=== PATIENT | female | born 1990 | race Caucasian/White ===

== ENCOUNTER 2017-01-05 11:13 | Emergency (ER) | payer BC, OTHER ==
[~2017-01-05] VITALS: Ht 175.3 cm; Wt 133.8 kg
[~2017-01-05 11:13] MED LIST: BENZ56AE TP; CODE-54 PO; DCS100C PO; IBP600T1 PO; PREN-93 PO
--- NOTE | 2017-01-05 11:27 | ED Abdominal Pain ---
General Stated Complaint: SHARP ABD PAIN Source of Information: Patient Exam Limitations: No Limitations History of Present Illness Time Seen By Provider: 11:25 Initial Comments To ER with sharp left-sided abdominal pain that began rather suddenly around 8 a.m. this morning and was followed by vomiting and diaphoresis. She has never had this pain before and it radiates to the left flank. She denies any dysuria. She denies any fevers chills or bowel changes. Timing/Duration: 4-6 Hours Severity/Quality: Severe, Sharp Location: LLQ Radiation: Flank Associated Symptoms: No Fever/Chills, Nausea/Vomiting Allergies and Home Medications Allergies Coded Allergies: No Known Drug Allergies (Unverified , 10/11/10) Home Medications Acetaminophen/Codeine 1 Tab Tablet, 1-2 TAB PO Q4H PRN for PAIN, #30 Prescribed by: ESTELA HARDEN on 04/28/13 0916 Benzocaine/Menthol 56 Ml Aerosol, 56 ML TP UD PRN for PAIN, #1 Prescribed by: ESTELA HARDEN on 04/28/13 0916 Docusate Sodium 100 Mg Cap, 100 MG PO BID, #30 Prescribed by: ESTELA HARDEN on 04/28/13 0916 Hydrocodone/Acetaminophen 1 Each Tablet, 1 EACH PO Q4H PRN for PAIN-MODERATE, # 30 Prescribed by: PABLO ROCHA on 01/05/17 1213 Ibuprofen 600 Mg Tab, 600 MG PO Q6H, #40 Prescribed by: ESTELA HARDEN on 04/28/13 0916 Ondansetron 8 Mg Tab.rapdis, 8 MG PO Q4H PRN for NAUSEA/VOMITING-1ST LINE, #14 Prescribed by: PABLO ROCHA on 01/05/17 1213 Vit/Fe Fumarate/Fa 1 Each Tablet, 1 EACH PO DAILY, (Reported) Sulfamethoxazole/Trimethoprim 1 Each Tablet, 1 EACH PO BID, #10 Prescribed by: PABLO ROCHA on 01/05/17 1213 Tamsulosin HCl 0.4 Mg Cap, 0.4 MG PO DAILY, #10 Prescribed by: PABLO ROCHA on 01/05/17 1213 Review of Systems Constitutional: see HPI EENTM: No Symptoms Reported Respiratory: No Symptoms Reported Cardiovascular: No Symptoms Reported Gastrointestinal: See HPI Genitourinary: No Symptoms Reported Musculoskeletal: no symptoms reported Skin: no symptoms reported Psychiatric/Neurological: No Symptoms Reported Endocrine: No Symptoms Reported Hematologic/Lymphatic: No Symptoms Reported Past Sqtfvza-Cttbcy-Pckwks Hx Patient Social History Recent Foreign Travel: No Contact w/Someone Who Travel: No Immunizations Up To Date Tetanus Booster (TDap): Less than 5yrs PED Vaccines UTD: Yes Surgeries HX Surgeries: Yes Respiratory Hx Respiratory Disorders: No Cardiovascular Hx Cardiac Disorders: No Neurological Hx Neurological Disorders: No Reproductive System Hx Reproductive Disorders: No Genitourinary Hx Genitourinary Disorders: No Gastrointestinal Hx Gastrointestinal Disorders: No Musculoskeletal Hx Musculoskeletal Disorders: No Endocrine Hx Endocrine Disorders: No HEENT HX ENT Disorders: No Cancer Hx Cancer: No Psychosocial Hx Psychiatric Problems: No Integumentary HX Skin/Integumentary Disorder: No Blood Transfusions Hx Blood Disorders: No Family Medical History Family Medial History: Family history: Cardiovascular disease Family history: Diabetes mellitus No Family History of: Abdominal aortic aneurysm Sloan's disease Alcoholism Aphasia Cancer Cancer of colon Cataract Chest pain Congenital heart disease Congestive heart failure Cystic fibrosis Dementia Dysphagia Family history: Allergy Family history: Alzheimer's disease Family history: Arthritis Family history: Asthma Family history: Breast disease Family history: Coronary thrombosis Family history: Gastrointestinal disease Family history: Glaucoma Family history: Hypertension Family history: Osteoporosis Family history: Thyroid disorder Headache Hearing loss Heart disease Hereditary disease History of - anemia History of - disorder History of - respiratory disease History of drug abuse Human immunodeficiency virus (HIV) seropositivity Hypercholesterolemia Infertile Kidney disease Malignant neoplasm of lung Myocardial infarction Parkinson's disease Prostate cancer Psychotic disorder Seizure disorder Stroke Tuberculosis Visual impairment Physical Exam Vital Signs VS - Last 72 Hours, by Label 01/05/17 01/05/17 11:33 11:34 Temp 95.9 95.9 Pulse 70 B/P (MAP) 148/103 Pulse Ox 98 Capillary Refill : General Appearance: WD/WN, no apparent distress HEENT: PERRL/EOMI, normal ENT inspection Neck: non-tender, full range of motion Respiratory: no respiratory distress, no accessory muscle use Cardiovascular: regular rate, rhythm, no murmur Gastrointestinal: normal bowel sounds, soft, tenderness (LLQ) Extremities: normal range of motion, non-tender Neurologic/Psychiatric: alert, normal mood/affect, oriented x 3 Skin: normal color, warm/dry Progress/Results/Core Measures Results/Orders Lab Results Laboratory Tests Test 01/05/17 11:20 01/05/17 11:30 Range/Units White Blood Count 11.5 H 4.3-11.0 10^3/uL Red Blood Count 5.28 4.35-5.85 10^6/uL Hemoglobin 15.2 11.5-16.0 G/DL Hematocrit 44 35-52 % Mean Corpuscular Volume 83 80-99 FL Mean Corpuscular Hemoglobin 29 25-34 PG Mean Corpuscular Hemoglobin Concent 35 32-36 G/DL Red Cell Distribution Width 12.5 10.0-14.5 % Platelet Count 288 130-400 10^3/uL Mean Platelet Volume 10.3 7.4-10.4 FL Neutrophils (%) (Auto) 82 H 42-75 % Lymphocytes (%) (Auto) 13 12-44 % Monocytes (%) (Auto) 4 0-12 % Eosinophils (%) (Auto) 1 0-10 % Basophils (%) (Auto) 0 0-10 % Neutrophils # (Auto) 9.4 H 1.8-7.8 X 10^3 Lymphocytes # (Auto) 1.5 1.0-4.0 X 10^3 Monocytes # (Auto) 0.5 0.0-1.0 X 10^3 Eosinophils # (Auto) 0.1 0.0-0.3 10^3/uL Basophils # (Auto) 0.0 0.0-0.1 10^3/uL Sodium Level 138 135-145 MMOL/L Potassium Level 3.9 3.6-5.0 MMOL/L Chloride Level 109 H 98-107 MMOL/L Carbon Dioxide Level 16 L 21-32 MMOL/L Anion Gap 13 5-14 MMOL/L Blood Urea Nitrogen 13 7-18 MG/DL Creatinine 0.80 0.60-1.30 MG/DL Estimat Glomerular Filtration Rate > 60 BUN/Creatinine Ratio 16 Glucose Level 126 H 70-105 MG/DL Calcium Level 9.6 8.5-10.1 MG/DL Total Bilirubin 0.6 0.1-1.0 MG/DL Aspartate Amino Transf (AST/SGOT) 30 5-34 U/L Alanine Aminotransferase (ALT/SGPT) 48 0-55 U/L Alkaline Phosphatase 69 40-136 U/L Total Protein 7.5 6.4-8.2 GM/DL Albumin 4.3 3.2-4.5 GM/DL Serum Test, Qualitative NEGATIVE NEGATIVE Urine Color YELLOW Urine Clarity SLIGHTLY CLOUDY Urine pH 5 5-9 Urine Specific [place] 1.025 H 1.016-1.022 Urine Protein 1+ H NEGATIVE Urine Glucose (UA) NEGATIVE NEGATIVE Urine Ketones 4+ H NEGATIVE Urine Nitrite NEGATIVE NEGATIVE Urine Bilirubin NEGATIVE NEGATIVE Urine Urobilinogen NORMAL NORMAL MG/DL Urine Leukocyte Esterase 3+ H NEGATIVE Urine RBC (Auto) 3+ H NEGATIVE Urine RBC 10-25 H /HPF Urine WBC 10-25 H /HPF Urine Squamous Epithelial Cells 25-50 H /HPF Urine Crystals NONE /LPF Urine Bacteria MODERATE H /HPF Urine Casts NONE /LPF Urine Mucus NEGATIVE /LPF Urine Culture Indicated YES My Orders Orders - PABLO ROCHA APRN Ketorolac Injection (Toradol Injection) (01/05/17 11:30) Ns Iv 1000 Ml (Sodium Chloride 0.9%) (01/05/17 11:30) Cbc With Automated Diff (01/05/17 11:24) Comprehensive Metabolic Panel (01/05/17 11:24) Ua Culture If Indicated (01/05/17 11:24) Saline Lock/Iv-Start (01/05/17 11:24) Urine Bedside (01/05/17 11:24) Ct Abd/Pelvis Wo(Kidney Stone) (01/05/17 11:27) Hcg,Qualitative Serum (01/05/17 11:39) Urine Culture (01/05/17 11:30) Levofloxacin Tablet (Levaquin Tablet) (01/05/17 12:15) Hydrocodone/Apap 5/325 Tablet (Lortab 5 (01/05/17 12:15) Abdomen/Kub 1view (01/05/17 12:14) Medications Given in ED Current Medications Medications Dose Ordered Sig/Brain Route Start Time Stop Time Status Last Admin Dose Admin Ketorolac Tromethamine 30 mg ONCE ONCE IVP 01/05/17 11:30 01/05/17 11:31 DC 01/05/17 11:33 30 MG Vital Signs/I&O Vital Sign - Last 12Hours 01/05/17 01/05/17 11:33 11:34 Temp 95.9 95.9 Pulse 70 B/P (MAP) 148/103 Pulse Ox 98 Diagnostic Imaging Diagonstic Imaging: CT Comments NAME: [facility]LADE [facility] REC#: [id number] PT STATUS: REG ER : 1990 PHYSICIAN: PABLO ROCHA APRN ADMIT DATE: 01/05/17/ER Draft Date of Exam:01/05/17 CT ABD/PELVIS WO(KIDNEY STONE) PROCEDURE: CT urinary tract, rule out kidney stone. TECHNIQUE: Multiple contiguous axial images were obtained through the abdomen and pelvis without the use of intravenous contrast. INDICATION: Left flank pain. FINDINGS: There is a mild to moderate left hydroureteronephrosis secondary to a 4 mm stone in the distal left ureter about 1 cm from the UVJ. No other urinary tract stones seen. No right-sided hydronephrosis. The abdominal aorta is normal in caliber. No significantly enlarged paraaortic lymph nodes. The liver, the gallbladder, the spleen, the pancreas and the adrenals appear unremarkable for unenhanced exam. The urinary bladder is empty and not well seen. The uterus and the adnexa appear grossly unremarkable. There is no bowel obstruction. There is a tiny fat-containing umbilical hernia. There is no significant free fluid or fluid collection in the abdomen or pelvis. The lung bases appear clear. The osseous structures demonstrate degenerative changes in the SI joints. IMPRESSION: 1. There is [id number] left hydroureteronephrosis secondary to distal ureteric stone about 1 cm from the UVJ. 2. Tiny fat-containing umbilical hernia. Dictated on workstation # [id number] Dict: 01/05/17 1227 Trans: 01/05/17 1239 [facility] [id number] Interpreted by: ROMÁN BRAXTON MD Electronically signed by: Departure Impression Impression: Primary Impression: Left ureteral stone Disposition: 01 HOME, SELF-CARE Condition: Stable Departure-Patient Inst. Decision time for Depature: 12:10 Referrals: NO,LOCAL PHYSICIAN (PCP) Primary Care Physician MATHEW DIXON MD Patient Instructions: Kidney Stones (DC) Add. Discharge Instructions: Strain all of your urine. U should be able to see this kidney stone when you pass it 2. Use uswk-nrd-fhhrezo Motrin (ibuprofen) 800 mg every 8 hours in addition to the prescribed pain medication. 3. Call Dr. Dixon today or tomorrow to make an appointment to be seen Scripts Sulfamethoxazole/Trimethoprim (Bactrim Ds Tablet) 1 Each Tablet 1 EACH PO BID, #10 TAB Prov: PABLO ROCHA APRN 01/05/17 Ondansetron (Zofran Odt) 8 Mg Tab.rapdis 8 MG PO Q4H Y for NAUSEA/VOMITING-1ST LINE, #14 TAB Prov: PABLO ROCHA APRN 01/05/17 Hydrocodone/Acetaminophen ([place] 5-325 Tablet) 1 Each Tablet 1 EACH PO Q4H Y for PAIN-MODERATE, #30 TAB Prov: PABLO ROCHA APRN 01/05/17 Tamsulosin HCl (Flomax) 0.4 Mg Cap 0.4 MG PO DAILY, #10 CAP Prov: PABLO ROCHA APRN 01/05/17 PABLO ROCHA APRN Jan 05, 2017 11:27
[2017-01-05] MEDS ORDERED: NS IV 1000 ML 1,000 ML IV SCH (11:30)
[2017-01-05] MEDS ORDERED: KETOROLAC 30 MG/ML VIAL IVP ONE (11:30)
[2017-01-05 11:34] LABS: BASOPHILS % (AUTO) 0 % (0-10); EOSINOPHILS # (AUTO) 0.1 10^3/uL (0.0-0.3); EOSINOPHILS % (AUTO) 1 % (0-10); LYMPHOCYTES # (AUTO) 1.5 X 10^3 (1.0-4.0); LYMPHOCYTES % (AUTO) 13 % (12-44); MEAN CORPUSCULAR HEMOGLOBIN 29 PG (25-34); MEAN CORPUSCULAR HGB CONC 35 G/DL (32-36); MEAN CORPUSCULAR VOLUME 83 FL (80-99); MEAN PLATELET VOLUME 10.3 FL (7.4-10.4); MONOCYTES # (AUTO) 0.5 X 10^3 (0.0-1.0); MONOCYTES % (AUTO) 4 % (0-12); NEUTROPHILS # (AUTO) 9.4 X 10^3 (1.8-7.8); NEUTROPHILS % (AUTO) 82 % (42-75); PLATELET COUNT 288 10^3/uL (130-400); RED BLOOD COUNT 5.28 10^6/uL (4.35-5.85); RED CELL DISTRIBUTION WIDTH 12.5 % (10.0-14.5); WHITE BLOOD COUNT 11.5 10^3/uL (4.3-11.0)
[2017-01-05 11:50] LABS: ALANINE AMINOTRANSFERASE 48 U/L (0-55); ALBUMIN 4.3 GM/DL (3.2-4.5); ANION GAP 13 MMOL/L (5-14); ASPARTATE AMINO TRANSFERASE 30 U/L (5-34); BILIRUBIN,TOTAL 0.6 MG/DL (0.1-1.0); BLOOD UREA NITROGEN 13 MG/DL (7-18); BUN/CREATININE RATIO 16; CALCIUM 9.6 MG/DL (8.5-10.1); CARBON DIOXIDE 16 MMOL/L (21-32); CHLORIDE 109 MMOL/L (98-107); GFR ESTIMATED > 60; GLUCOSE 126 MG/DL (70-105); POTASSIUM 3.9 MMOL/L (3.6-5.0); SODIUM 138 MMOL/L (135-145); TOTAL PROTEIN 7.5 GM/DL (6.4-8.2)
[2017-01-05 12:02] LABS: BILIRUBIN,URINE NEGATIVE (NEGATIVE); KETONES,URINE 4+ (NEGATIVE); LEUKOCYTE ESTERASE ,URINE 3+ (NEGATIVE); NITRITE,URINE NEGATIVE (NEGATIVE); PH,URINE 5 (5-9); PROTEIN,URINE 1+ (NEGATIVE); UROBILINOGEN,URINE NORMAL (NORMAL)
[2017-01-05 12:11] LABS: SQUAMOUS EPITHELIAL CELL,UR 25-50 /HPF
[2017-01-05] MEDS ORDERED: TAMS0.4C98 PO (12:13)
[2017-01-05] MEDS ORDERED: SULF1TAB35 PO (12:13)
[2017-01-05] MEDS ORDERED: HYDR-757 PO (12:13)
[2017-01-05] MEDS ORDERED: ONDA8TAB9 PO (12:13)
[2017-01-05] MEDS ORDERED: HYDROcodone/APAP 5 MG/325 MG (LORTAB) TAB PO ONE (12:15)
[2017-01-05] MEDS ORDERED: LEVOFLOXACIN 500 MG TAB (LEVAQUIN) PO ONE (12:15)
--- NOTE | 2017-01-05 12:38 | Diagnostic Imaging Report ---
KUB. INDICATION: Left-sided abdominal pain. Distal left ureteric stone. FINDINGS: There is a 4-mm calcification seen in the left side of the pelvis correlating with a distal left ureteric stone seen on CT scan. Small amount of fecal material seen in the right colon. IMPRESSION: A 4-mm distal left ureteric stone is seen. Dictated by: Dictated on workstation # [id number]
--- NOTE | 2017-01-05 12:39 | Diagnostic Imaging Report ---
PROCEDURE: CT urinary tract, rule out kidney stone. TECHNIQUE: Multiple contiguous axial images were obtained through the abdomen and pelvis without the use of intravenous contrast. INDICATION: Left flank pain. FINDINGS: There is a mild to moderate left hydroureteronephrosis secondary to a 4 mm stone in the distal left ureter about 1 cm from the UVJ. No other urinary tract stones seen. No right-sided hydronephrosis. The abdominal aorta is normal in caliber. No significantly enlarged paraaortic lymph nodes. The liver, the gallbladder, the spleen, the pancreas and the adrenals appear unremarkable for unenhanced exam. The urinary bladder is empty and not well seen. The uterus and the adnexa appear grossly unremarkable. There is no bowel obstruction. There is a tiny fat-containing umbilical hernia. There is no significant free fluid or fluid collection in the abdomen or pelvis. The lung bases appear clear. The osseous structures demonstrate degenerative changes in the SI joints. IMPRESSION: 1. There is [id number]-dhmxxrka left hydroureteronephrosis secondary to distal ureteric stone about 1 cm from the UVJ. 2. Tiny fat-containing umbilical hernia. Dictated by: Dictated on workstation # [id number]
[2017-01-05 12:50] VITALS: BP 142/90
== END 2017-01-05 12:48 | disposition home or self-care (01) ==
LOC: EDUNIT# 11:13 → ER 11:17
DX: N13.2 Hydronephrosis with renal and ureteral calculous obstruction (principal); K42.9 Umbilical hernia without obstruction or gangrene
CPT/HCPCS: 36415; 74000; 74176; 80053; 81000; 84703; 85025; 87088; 96361; 96374